=== PATIENT | male | born 1975 | race Caucasian/White ===

== ENCOUNTER 2025-03-01 18:21 | Emergency (ER) | payer SELFPAY ==
[~2025-03-01] VITALS: Ht 167.6 cm; Wt 83.0 kg
[2025-03-01 18:22] VITALS: O2SAT 99
[2025-03-01 18:23] VITALS: BP 157/95; PULSE 70; RESP 16; TEMP 36.8; O2SAT 98
[2025-03-01] MEDS ORDERED: METF-415 MT (21:32)
== END 2025-03-01 22:15 | disposition home or self-care (01) ==
LOC: ER 18:21
DX: E11.9 Type 2 diabetes mellitus without complications (principal); Z76.0 Encounter for issue of repeat prescription; Z79.84 Long term (current) use of oral hypoglycemic drugs
CPT/HCPCS: 99281